=== PATIENT | male | born 1940 | race Caucasian/White ===

== ENCOUNTER 2023-10-28 15:18 | Outpatient (CLI) | payer MEDICARE, BC | END 2023-10-28 23:59 | disposition critical access hospital (66) | LOC: EMS 15:18 | DX: S61.501A Unspecified open wound of right wrist, initial encounter (principal); S50.812A Abrasion of left forearm, initial encounter; S50.811A Abrasion of right forearm, initial encounter; S80.812A Abrasion, left lower leg, initial encounter; S80.811A Abrasion, right lower leg, initial encounter; W18.39XA Other fall on same level, initial encounter; Y92.89 Other specified places as the place of occurrence of the external cause; R19.7 Diarrhea, unspecified; I95.9 Hypotension, unspecified; Z79.01 Long term (current) use of anticoagulants | CPT/HCPCS: A0425; A0429 ==

== ENCOUNTER 2023-10-28 15:29 | Emergency (ER) | payer MEDICARE, BC ==
--- NOTE | 2023-10-28 15:45 | ED Physician Documentation ---
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 The patient was in his usual state of health today, and had gone out to lunch, and then had the sensation that he needed to have a urgent bowel movement. This does happen to him from time to time. He was not not at home at the time so his daughter pulled over on the side of the road a went out into a forested area so he could try to have a bowel movement and daughter states that she turned away for a moment and did not see him fall but believes he may have tripped and fell in his pickard to have a bowel movement. He fell face forward though he states he did not strike his head, daughter believes that he fell face forward. He states he fell backwards and sat onto his buttocks and went backwards. In any case, the patient feels just fine, he has no complaints at this time, has no abdominal pain, denies any prodromal symptoms prior to the fall including chest pain, difficulty breathing, confusion or alteration in mental status. It sounds as though he does sometimes get bouts of diarrhea when he eats fried foods and he ate fish and chips shortly before this. Later however, his daughter states that the patient has not been out of it weaker the last couple of days and has required increased assistance with ambulation getting up out of bed. He does use a walker or cane but has had need for increased assistance recently. He denies having any fever, no cough or URI symptoms, and denies any other concerns today. 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 Patient is quite adamant that he is going to go regardless. Review of Systems Constitutional: reports: Reviewed and negative Eyes: reports: Reviewed and negative Ears: reports: Reviewed and negative Nose: reports: Reviewed and negative Throat: reports: Reviewed and negative Cardiac: reports: Reviewed and negative Respiratory: reports: Reviewed and negative GI: reports: Diarrhea : reports: Reviewed and negative Skin: reports: Abrasion (s) Musculoskeletal: reports: Reviewed and negative Neurologic: reports: Head injury Psychiatric: reports: Reviewed and negative PD PAST MEDICAL HISTORY - Past Medical History Past Medical History: Yes Cardiovascular: Atrial fibrillation, Arrhythmia - Past Surgical History Ortho: Spine surgery - Present Medications Home Medications: Ambulatory Orders Medication Instructions Recorded Confirmed Apixaban [Eliquis] 5 mg PO DAILY 10/28/23 10/28/23 Atorvastatin Calcium [Lipitor] 80 mg PO DAILY 10/28/23 10/28/23 Brimonidine 0.2% Ophth Drops See Rx Instructions .ROUTE .COMPLEX 10/28/23 10/28/23 [Alphagan P 0.2% Ophth Drops] Calc/D3/Mag Cit,Ox/K2/[id number] 1 each PO DAILY 10/28/23 10/28/23 [Alive Calcium-Vitamin D3-K2 Tb] Cyclobenzaprine [Flexeril] 10 mg PO TID PRN 10/28/23 10/28/23 Dorzolamide HCl/Timolol Maleat 10 ml OP DAILY 10/28/23 10/28/23 [Cosopt Eye Drops] Doxycycline [Vibramycin] 100 mg PO QD 10/28/23 10/28/23 Fluorometholone Acetate [Flarex] 5 ml OP DAILY 10/28/23 10/28/23 Gabapentin [Neurontin] 100 mg PO TID 10/28/23 10/28/23 Glucosamine HCl/Chondroitin Sosa 1 each PO DAILY 10/28/23 10/28/23 [Glucosamine-Chondroitin Cap] Lansoprazole [Prevacid] 30 mg PO DAILY 10/28/23 10/28/23 Levothyroxine Sodium [Synthroid] 100 mcg PO DAILY 10/28/23 10/28/23 Lisinopril [Zestril] 20 mg PO DAILY 10/28/23 10/28/23 Mirabegron [Myrbetriq] 50 mg PO DAILY 10/28/23 10/28/23 Mv/Fe/FA/Om3/FSH/Lycop/Lut/Yudi 1 each PO DAILY 10/28/23 10/28/23 [Multia Daily Multivitamin] Netarsudil Mesylat/Latanoprost 2.5 ml OP BID 10/28/23 10/28/23 [Rocklatan 0.02%-0.005% Eye Drp] Nitroglycerin [Nitrostat] 0.4 mg SL [id number] 10/28/23 10/28/23 Oxycodone HCl/Acetaminophen 1 each PO BID 10/28/23 10/28/23 [Oxycodone-Acetaminophen 5-325] Sotalol [Betapace] 80 mg PO BID 10/28/23 10/28/23 amLODIPine [Norvasc] 5 mg PO DAILY 10/28/23 10/28/23 cephALEXin [Keflex] 500 mg PO Q6H #28 cap 10/28/23 methylPREDNISolone [Medrol Dose 1 each PO .PACKAGEINSTRUCTIONS 10/28/23 10/28/23 Pack] - Allergies Allergies/Adverse Reactions: Allergies Allergy/AdvReac Type Severity Reaction Status Date / Time No Known Drug Allergies Allergy Verified 10/28/23 15:52 PD ED PE NORMAL - Vitals Vital signs reviewed: Yes - General General: Alert and oriented X 3, No acute distress, Well developed/nourished - HEENT HEENT: Atraumatic, PERRL, EOMI, Ears normal, Moist mucous membranes, Pharynx benign - Neck Neck: Supple, no meningeal sign, No JVD - Cardiac Cardiac: RRR, No murmur, No gallop, No rub - Respiratory Respiratory: No respiratory distress, Clear bilaterally - Abdomen Abdomen: Normal bowel sounds, Soft, Non tender, Non distended - Back Back: No CVA TTP, No spinal TTP - Derm Derm: Normal color, Warm and dry, Other (Several small bruises and skin tears on his arms and legs bilaterally.) - Extremities Extremities: No deformity, No tenderness to palpate, Normal ROM s pain, No edema, No calf tenderness / cord - Neuro Neuro: Alert and oriented X 3, No motor deficit, No sensory deficit, Normal speech Eye Opening: Spontaneous Motor: Obeys Commands Verbal: Oriented GCS Score: 15 - Psych Psych: Normal mood, Normal affect Results - Vitals Vitals: Vital Signs - 24 hr 10/28/23 10/28/23 10/28/23 15:42 16:09 18:04 Temperature 36.3 C L Heart Rate 63 62 58 L Respiratory 20 14 16 Rate Blood Pressure 101/44 L 95/50 L 133/74 H O2 Saturation 95 94 97 Oxygen O2 Source Room air - Labs Labs: Laboratory Tests 10/28/23 10/28/23 10/28/23 15:45 15:45 17:40 WBC 14.6 H RBC 3.74 L Hgb 12.0 L Hct 36.5 L MCV 97.6 H MCH 32.1 H MCHC 32.9 RDW 14.0 Plt Count 245 MPV 9.8 Neut # (Auto) Not Reportable Lymph # (Auto) Not Reportable Whitley # (Auto) Not Reportable Eos # (Auto) Not Reportable Baso # (Auto) Not Reportable Absolute Nucleated RBC Not Reportable Total Counted 100 Band Neuts % (Manual) 0 Reactive Lymphs % (Man) 4 Abnorm Lymph % (Manual) 0 Nucleated RBC % Not Reportable Neutrophils # (Manual) 12.0 H Lymphocytes # (Manual) 1.3 L Monocytes # (Manual) 1.0 Eosinophils # (Manual) 0.3 Basophils # (Manual) 0.0 Differential Comment MANUAL DIFFERENTIAL Platelet Estimate NORMAL (130-450,000) Platelet Morphology NORMAL APPEARANCE RBC Morph Micro Appear NORMAL APPEARANCE Sodium 136 Potassium 4.0 Chloride 107 Carbon Dioxide 23 Anion Gap 6.0 BUN 19 Creatinine 1.4 H Estimated GFR (MDRD) 49 L Glucose 131 H Calcium 8.7 Total Bilirubin 0.5 AST 11 ALT 14 Alkaline Phosphatase 65 Total Protein 5.4 L Albumin 3.4 Globulin 2.0 L Albumin/Globulin Ratio 1.7 Lipase 12 Urine Color DARK YELLOW Urine Clarity HAZY Urine pH 5.5 Ur Specific [place] 1.020 Urine Protein NEGATIVE Urine Glucose (UA) NEGATIVE Urine Ketones TRACE Urine Occult Blood NEGATIVE Urine Nitrite NEGATIVE Urine Bilirubin NEGATIVE Urine Urobilinogen 0.2 (NORMAL) Ur Leukocyte Esterase SMALL H Urine RBC None Seen Urine WBC >25 H Ur Squamous Epith Cells NONE SEEN Urine Bacteria Rare Ur Microscopic Review INDICATED Urine Culture Comments INDICATED - Rads (name of study) No standard instances Relevant Findings:: Final report received PD Medical Decision Making - ED course Complexity details: reviewed results, re-evaluated patient, considered differential, d/w patient, d/w family ED course: This is a 83-year-old male with past medical history is as above who presented after a fall today as described in HPI. The patient has absolutely no concerns when I speak with him but his daughter does note that he has been somewhat weaker the last day or so and they are concerned as he is to go on this 5-day working barge trip starting tomorrow. This is a big dream of his and he absolutely wants to still go. In any case, We obtained lab work to evaluate for possible reasons further the fall including infection, anemia, and obtain a head CT to to evaluate for possible injury during the fall. His head CT is negative for any acute findings, labs that show a creatinine 1.4, do not have a prior patient is unsure of his baseline, and his white blood count is 14.6. Urinalysis is suggestive of infection. I have sent this for culture. I started the patient on ceftriaxone here and will discharge him on Keflex. I would prefer to use Cipro however patient is on sotalol, and with his renal function I would not want to use Bactrim. Patient was also given a 500 and Mobil is here is not clear if he has underlying renal disease or not. I strongly recommended the patient did not go on this trip that he was planning as I am concerned that he has a potential to worsen and I do not think that he will be fully back to baseline by tomorrow to be strong enough to go up and down the stairs and do the things that he needs to do to remain safe on this barge. Patient is quite adamant however that he plans on going and there is apparently no way to delay the trip. I advised that if he does consider going on the trip that I strongly recommend that he get evacuation insurance as I am quite concerned that he will run into potential problems. Departure - Departure Disposition: 01 Home, Self Care Clinical Impression: Fall from ground level Urinary tract infection Qualifiers: Urinary tract infection type: acute cystitis Hematuria presence: without hematuria Qualified Code(s): N30.00 - Acute cystitis without hematuria Condition: Good Instructions: ED UTI Cystitis Male Prescriptions: cephALEXin [Keflex] 500 mg PO Q6H #28 cap Comments: Michael, your head CT did not show any acute findings. Your labs showed that you likely have a urinary tract infection. We have sent the urine for culture and I recommend that you start on antibiotics now. We have given you a first dose of antibiotics through the IV here in the emergency department but you will need to continue an additional 7 days of antibiotics. I do not have any prior lab work from you but your labs today showed that you possibly have some mild dehydration or decreased kidney function. This may be normal for you but it should be followed and I would like you to have lab work done in a week or so to ensure that it is stable or improving. In the meantime, please drink plenty of water and stay well-hydrated. If you develop a fever or worsening symptoms he will need to return to the emergency department. I know that you would really like to go on this trip you have planned. I think there is a risk that you could get sicker over the next few days and require emergency medical care. This is much more difficult to do if you are on a ship and therefore I strongly recommend you consider changing or plans or at minimum getting evacuation insurance so that you can receive care if needed. Forms: PCP List
[2023-10-28 15:51] LABS: BASOPHILS % (AUTO) 0.3 %; EOSINOPHILS % (AUTO) 1.8 %; HCT - HEMATOCRIT 36.5 % (42.0-52.0); LYMPHOCYTES % (AUTO) 7.5 %; MEAN CORPUSCULAR HEMOGLOBIN 32.1 pg (27.0-31.0); MEAN CORPUSCULAR HGB CONC 32.9 g/dL (32.0-36.0); MEAN CORPUSCULAR VOLUME 97.6 fL (80.0-94.0); MEAN PLATELET VOLUME 9.8 fL (7.4-11.4); MONOCYTES % (AUTO) 10.6 %; NEUTROPHILS % (AUTO) 79.3 %; PLT - PLATELET COUNT 245 10^3/uL (130-450); RED BLOOD COUNT 3.74 10^6/uL (4.70-6.10); WHITE BLOOD COUNT 14.6 x10^3/uL (4.8-10.8)
[2023-10-28 15:55] LABS: ABNORMAL LYMPHS % (MANUAL) 0 %; BAND NEUTROPHILS % (MANUAL) 0 %
[2023-10-28 16:09] LABS: ALBUMIN 3.4 g/dL (3.2-5.5); ALBUMIN/GLOBULIN RATIO 1.7 (1.0-2.2); BILIRUBIN,TOTAL 0.5 mg/dL (0.2-1.0); CALCIUM 8.7 mg/dL (8.5-10.3); CREATININE 1.4 mg/dL (0.6-1.3); TOTAL PROTEIN 5.4 g/dL (6.4-8.9)
--- NOTE | 2023-10-28 16:28 | CT Report ---
PROCEDURE: Head WO INDICATIONS: fall, on eliquis TECHNIQUE: Helical axial CT of the brain was obtained without contrast and reformatted in multiple p lanes. Radiation dose reduction was achieved using automated exposure control or adjustment of mA and /or kV according to patient size. COMPARISON: None FINDINGS: CSF spaces: Ventricles are appropriate in size and position. No hydrocephalus. Basal cisterns unre markable. Brain: No midline shift. No intracranial masses or hemorrhage. Quinn-white matter interface is norm al. Skull and face: Calvarium and skull base are unremarkable without suspicious lesion. Sinuses: Visualized sinuses and mastoids are clear. IMPRESSION: Age-appropriate atrophy and white matter chronic ischemic change without intracranial hemorrhage or m ass effect. Reviewed by: Pipe Emmanuel MD on 10/28/2023 3:27 PM SÁNCHEZ Approved by: Pipe Emmanuel MD on 10/28/2023 3:27 PM AKSHELLY Station ID: [id number]
[2023-10-28 16:30] LABS: DIFFERENTIAL COMMENT MANUAL DIFFERENTIAL; EOSINOPHILS # (MANUAL) 0.3 10^3/uL (0-0.7); LYMPHOCYTES # (MANUAL) 1.3 10^3/uL (1.5-3.5); LYMPHOCYTES % (MANUAL) 5 %; PLATELET ESTIMATE, MANUAL NORMAL (130-450,000) (NORMAL); PLATELET MORPHOLOGY NORMAL APPEARANCE (NORMAL); RBC MORPHOLOGY (MULTIPLE) NORMAL APPEARANCE (NORMAL); REACTIVE LYMPHS % (MANUAL) 4 %
[2023-10-28 17:48] LABS: BILIRUBIN,URINE NEGATIVE (NEGATIVE); GLUCOSE, URINE (UA) NEGATIVE (NEGATIVE); KETONES,URINE (UA) TRACE mg/dL (NEGATIVE); LEUKOCYTE ESTERASE, URINE SMALL (NEGATIVE); NITRITE,URINE NEGATIVE (NEGATIVE); OCCULT BLOOD,URINE NEGATIVE (NEGATIVE); PH,URINE 5.5 PH (5.0-7.5); PROTEIN,URINE NEGATIVE (NEGATIVE); UROBILINOGEN,URINE 0.2 (NORMAL) E.U./dL (NORMAL)
[2023-10-28 17:50] LABS: CLARITY,URINE HAZY (CLEAR)
[2023-10-28 17:58] LABS: BACTERIA,URINE Rare /HPF (None Seen); RBC,URINE None Seen /HPF (0-5); SQUAMOUS EPITHELIAL CELL,UR NONE SEEN (<= Few); WBC,URINE >25 /HPF (0-3)
[2023-10-28] MEDS ORDERED: cefTRIAXone 1 GM VIAL ONE (18:29)
[2023-10-28] MEDS: cefTRIAXone 1 GM in SODIUM CHLORIDE 0.9% MINIBAG 100 ML IV STA (18:30)
[2023-10-28] MEDS: SODIUM CHLORIDE 0.9% 500 ML IV STA (18:31)
[2023-10-28 19:38] VITALS: BP 132/77; O2SAT 98
== END 2023-10-28 19:26 | disposition home or self-care (01) ==
LOC: ED 15:29
DX: N30.00 Acute cystitis without hematuria (principal); Z91.81 History of falling; I48.91 Unspecified atrial fibrillation; Z79.01 Long term (current) use of anticoagulants
CPT/HCPCS: 36415; 80053; 81001; 81003; 83690; 85025; 87077; 87086; 87181; 93005; 96365; 99284